=== PATIENT | female | born 1950 | race Caucasian/White ===

== ENCOUNTER 2017-04-12 17:53 | Emergency (ER) | payer MEDICARE, OTHER ==
[~2017-04-12] VITALS: Ht 165.1 cm; Wt 95.2 kg
[~2017-04-12 17:53] MED LIST: ALBUTEROL2.5 MG/3 M INH; ANTI-DIARRHEA2 MG PO; CALCIUM CITRAT1 EAC4 PO; CLONIDINE1 EAC1 TD; COMBIVENT RESPIM4 GM INH; COUGH SYRU100 MG/5 M PO; DIAZEPAM2 MG PO; DIAZEPAM2.5 MG PO; DIAZEPAM5 MG PO; DILAUDID2 MG PO; FLUTICASONE PRO16 GM NAS; HYDROCHLOROTHIA25 MG PO; K-TAB ER20 MEQ PO; LISINOPRIL10 MG PO; LOPERAMIDE2 MG PO; MELOXICAM15 MG PO; METAMUCIL425 GM PO; METOPROLOL SUCC50 MG PO; METOPROLOL TART50 MG PO; MILK OF MA400 MG/5 M PO; MULTIVITAMINS1 EAC7 PO; NORCO 5-325 TA1 EACH PO; NYSTATIN15 G2 TOP; NYSTATIN15 GM TOP; OYSTER SHELL C500 MG PO; PRILOSEC20 MG PO; PROTONIX40 MG PO; ROBITUSSIN LON118 ML PO; SENOKOT8.6 MG PO; SINGULAIR10 MG PO; STELAZINE PO; TRAMADOL HCL50 MG PO; TRIFLUOPERAZINE10 MG PO; TYLENOL325 MG PO; VALIUM2 MG PO; VENTOLIN HFA18 GM INH; VISINE15 ML OU; VITAMIN D32000 UNIT PO; ZESTRIL5 MG PO
[2017-04-12] MEDS ORDERED: ACIDOPHILUS-PE1 EAC2 PO (22:57)
[2017-04-12] MEDS ORDERED: VALIUM5 MG PO (22:58)
[2017-04-12] MEDS ORDERED: VITAMIN D31000 UNIT PO (22:58)
[2017-04-12] MEDS ORDERED: LISINOPRIL10 MG PO (22:59)
[2017-04-12] MEDS ORDERED: LAC-DOSE3000 UNIT PO (22:59)
[2017-04-12] MEDS ORDERED: TOPROL XL50 MG PO (23:00)
[2017-04-12] MEDS ORDERED: FLONASE ALLERG9.9 ML (23:00)
[2017-04-12] MEDS ORDERED: LASIX40 MG PO (23:01)
[2017-04-12] MEDS ORDERED: MONTELUKAST SOD10 MG PO (23:01)
[2017-04-12] MEDS ORDERED: K-TAB ER20 MEQ PO (23:02)
[2017-04-12] MEDS ORDERED: NORTRIPTYLINE H25 MG PO (23:02)
[2017-04-12] MEDS ORDERED: VENTOLIN HFA18 GM INH (23:03)
[2017-04-12] MEDS ORDERED: MELOXICAM7.5 MG PO (23:03)
[2017-04-12] MEDS ORDERED: IMODIUM A-D2 M2 PO (23:04)
--- NOTE | 2017-04-13 14:39 | NUR ---
PT HAD BEEN SEEN IN ED AND DC'D, BUT REMAINED MOSTLY OUTSIDE THE BLDG LAST NIGHT AND UNTIL EARLY THIS MORNING. PT IS INCONTINENT, AND SOMEWHAT BELIGERENT. SMITH BEGAN WORKING TO GET INFO ON PT AND TO TRY AND SORT THROUGH ALL OF THE DETAILS AND CONFUSED TRAIL OF TREATMENT AND PLACEMENTS. SHE JUST WANTED TO SMOKE, VERY UNHAPPY THAT WE DIDNOT AND WOULD NOT PROVIDE HER WITH CIGARETTES. THE DAY WORE ON, SHE BECAME MORE DIFFICULT AND LOUD-ALL THE TIME REFUSING STAFF WHO WANTED TO HELP GET HER CLEAN. SHE SEEMED TO FALL THROUGH ALL THE CRACKS IN THE SYSTEM. LAST RESORT IS TO CALL [facility] AND HAVE THEM ASSIST WITH HER PLACEMENT. SHE ARRIVED HERE FROM [place] WITH A [facility]S WHEEL CHAIR.GOD BLESS HER AND GUIDE US
[2017-04-14] MEDS ORDERED: MULTIVITAMINS1 EAC7 PO (11:15)
[2017-04-14] MEDS ORDERED: NYSTATIN100000 UN1 PO (11:16)
[2017-04-14] MEDS ORDERED: TRIFLUOPERAZINE10 MG PO (11:16)
[2017-04-14] MEDS ORDERED: WELCHOL625 MG PO (11:17)
[2017-04-14] MEDS ORDERED: ALBUTEROL2.5 MG/3 M INH (11:19)
[2017-04-14] MEDS ORDERED: BISAC-EVAC10 MG PR (11:20)
[2017-04-14] MEDS ORDERED: COMPAZINE25 MG PO (11:22)
[2017-04-14] MEDS ORDERED: GAS RELIEF80 MG PO (11:22)
[2017-04-14] MEDS ORDERED: BENTYL10 MG PO (11:24)
[2017-04-14] MEDS ORDERED: PAIN RELIEF325 MG PO (11:25)
[2017-04-14] MEDS ORDERED: VENTOLIN HFA18 GM INH (11:26)
[2017-04-14] MEDS ORDERED: ADULT WAL-100 MG/5 M PO (11:27)
[2017-04-14] MEDS ORDERED: PERCOCET 5-3251 EACH PO (11:27)
[2017-04-14] MEDS ORDERED: IMODIUM A-D2 M2 PO (11:28)
[2017-04-14] MEDS ORDERED: MILK OF MA2400 MG/10 PO (11:29)
[2017-04-14] MEDS ORDERED: LACTAID3000 UNI1 PO (11:29)
== END 2017-04-13 01:04 | disposition home or self-care (01) ==
LOC: ED 17:53
DX: F25.9 Schizoaffective disorder, unspecified (principal); Z76.0 Encounter for issue of repeat prescription; I10 Essential (primary) hypertension; E11.9 Type 2 diabetes mellitus without complications; F17.200 Nicotine dependence, unspecified, uncomplicated; Z90.49 Acquired absence of other specified parts of digestive tract; Z96.641 Presence of right artificial hip joint; Z88.5 Allergy status to narcotic agent; Z88.8 Allergy status to other drugs, medicaments and biological substances; Z79.899 Other long term (current) drug therapy
CPT/HCPCS: 99281

== ENCOUNTER 2017-04-14 08:26 | Emergency (ER) | payer MEDICARE, OTHER ==
[~2017-04-14] VITALS: Ht 167.6 cm; Wt 95.3 kg
[~2017-04-14 08:26] MED LIST changes: +ACIDOPHILUS-PE1 EAC2 PO; +FLONASE ALLERG9.9 ML; +IMODIUM A-D2 M2 PO; +LAC-DOSE3000 UNIT PO; +LASIX40 MG PO; +MELOXICAM7.5 MG PO; +MONTELUKAST SOD10 MG PO; +NORTRIPTYLINE H25 MG PO; +TOPROL XL50 MG PO; +VALIUM5 MG PO; +VITAMIN D31000 UNIT PO
[2017-04-14] MEDS ORDERED: MULTIVITAMINS1 EAC7 PO (11:15)
[2017-04-14] MEDS ORDERED: NYSTATIN100000 UN1 PO (11:16)
[2017-04-14] MEDS ORDERED: TRIFLUOPERAZINE10 MG PO (11:16)
[2017-04-14] MEDS ORDERED: WELCHOL625 MG PO (11:17)
[2017-04-14] MEDS ORDERED: ALBUTEROL2.5 MG/3 M INH (11:19)
[2017-04-14] MEDS ORDERED: BISAC-EVAC10 MG PR (11:20)
[2017-04-14] MEDS ORDERED: COMPAZINE25 MG PO (11:22)
[2017-04-14] MEDS ORDERED: GAS RELIEF80 MG PO (11:22)
[2017-04-14] MEDS ORDERED: BENTYL10 MG PO (11:24)
[2017-04-14] MEDS ORDERED: PAIN RELIEF325 MG PO (11:25)
[2017-04-14] MEDS ORDERED: VENTOLIN HFA18 GM INH (11:26)
[2017-04-14] MEDS ORDERED: PERCOCET 5-3251 EACH PO (11:27)
[2017-04-14] MEDS ORDERED: ADULT WAL-100 MG/5 M PO (11:27)
[2017-04-14] MEDS ORDERED: IMODIUM A-D2 M2 PO (11:28)
[2017-04-14] MEDS ORDERED: MILK OF MA2400 MG/10 PO (11:29)
[2017-04-14] MEDS ORDERED: LACTAID3000 UNI1 PO (11:29)
--- NOTE | 2017-04-15 19:16 | EKG ---
[facility] [address] [place], [place] [address] Signed Sinus tachycardia Possible Anterior infarct , age undetermined Abnormal ECG No previous ECGs available Confirmed by LUIS EDUARDO JORDAN MD ([id number]) on 04/15/2017 7:15:51 PM Electronically Signed By: LUIS EDUARDO JORDAN MD 04/15/17 [id number] PATIENT NAME: MIKE FUNG Electrocardiogram DATE OF : 48 PHYSICIAN: LUIS EDUARDO JORDAN MD REPORT #: [id number] REPORT IS CONFIDENTIAL AND NOT TO BE RELEASED WITHOUT AUTHORIZATION
--- NOTE | 2017-04-16 13:30 | NUR ---
I WAS CONTACTED BY ED RN BERNA THAT PT WAS REQUESTING A VISIT FROM THE SALES PROJECT COORDINATOR. I ARRIVED, PT WAS SITTING ON SIDE OF BED CHANTING AND HOLDING A SMALL CROSS SHE HAD TAKEN OFF OF A ROSARY PROVIDED TO HER. SHE THEN BEGAN TO YELL AND SCREAM AT ME, LETTING ME KNOW SHE HAD NOTICED THAT NO STAFF OF ANOTHER RACE BESIDES "WHITE" HAD TAKEN CARE OF HER. SHE BEGAN TO AGAIN RANT AND SCREAM THAT SHE JUST WANTS HER MONEY FROM HER SSI CHECK, AND IS NOT CRAZY. SHE ALSO BEGAN TO SAY THAT SHE WAS ALWAYS YELLED AT A CHILD BY HER MOTHER, SO SHE HAS A RIGHT TO YELL IF SHE WANTS TO. SHE ALSO WANTED TO SMOKE, AND THAT SHE DOESN'T WANT ANY NICOTINE GUM WHICH SEEMED TO SATISFY HER BEFORE. I TOLD HER I WOULD PASS ON HER INSIGHT INTO HER PERCEIVED "HIRING FAILURES" AND THAT CALMED HER SOME. I WAS ABLE TO SEE HER CALM MORE, I ASKED HER IF I COULD PRAY FOR HER. SHE SAID YES, BUT ONLY IF SHE COULD PRAY FIRST. I REACHED FOR HER HAND, SHE STATED, "HER'S WERE DIRTY". I HELD THEM ANYWAY. SHE PRAYED, I PRAYED FOR HER, AND TOLD TOLD HER I WOULD COME BACK AND CHECK ON HER AGAIN. SHE SEEMED AGREEABLE. I WILL CONTINUE TO FOLLOW
--- NOTE | 2017-04-20 10:15 | NUR ---
ED SUMMONED ME TO VISIT WITH PT. WHEN I ARRIVED IN HER RM, SHE INVITRED ME TO SIT DOWN AND BEGAN TO TELL ME THAT OUR WORLD IS IN A MESS, AND THAT PRES SUMNER WAS NEEDED TO SPEND MORE TIME WITH HIS BUSINESSES, AND WOULD NEED HER HELP RUNNING THE [employer]. SHE ASKED ME TO PRAY FOR HER WHICH I DID. SHE ALSO STATED THAT HER SSI CHECK WAS SENT BACK SO NOW SHE IS PENNILESS. GOD HELP US HELP HER I WILL CONTINUE TO BE AVAILABLE TO FOLLOW
== END 2017-04-27 10:59 | disposition home or self-care (01) ==
LOC: ED 08:26
DX: F25.9 Schizoaffective disorder, unspecified (principal); N39.0 Urinary tract infection, site not specified; B37.9 Candidiasis, unspecified; L30.4 Erythema intertrigo; I10 Essential (primary) hypertension; E11.9 Type 2 diabetes mellitus without complications; Z90.49 Acquired absence of other specified parts of digestive tract; Z96.621 Presence of right artificial elbow joint; Z88.5 Allergy status to narcotic agent; Z88.8 Allergy status to other drugs, medicaments and biological substances; Z79.899 Other long term (current) drug therapy; L25.8 Unspecified contact dermatitis due to other agents; R32 Unspecified urinary incontinence; R00.0 Tachycardia, unspecified; M25.551 Pain in right hip; G89.29 Other chronic pain; R09.89 Other specified symptoms and signs involving the circulatory and respiratory systems; F17.200 Nicotine dependence, unspecified, uncomplicated; Z23 Encounter for immunization
CPT/HCPCS: 36415; 51701; 71010; 80053; 80176; 81001; 83605; 84443; 85025; 87040; 87077; 87088; 87186; 90674; 93005; 93010; 94640; 96361; 96372; 96374; 99285; G0008; G0480; J0696; J2060; J3230; J3360; J7030; J7512